=== PATIENT | male | born 1985 | race Caucasian/White ===

== ENCOUNTER 2016-08-22 14:16 | Outpatient (CLI) | payer MEDICAID | END 2016-08-22 14:17 | disposition home or self-care (01) | DX: I26.99 Other pulmonary embolism without acute cor pulmonale (principal) ==

== ENCOUNTER 2017-09-26 11:59 | Outpatient (CLI) | payer MEDICAID ==
--- NOTE | 2017-09-26 14:29 | XRAY Report ---
THREE VIEW RIGHT FIFTH FINGER: 09/26/2017 CLINICAL INDICATION: Laceration. FINDINGS: AP, lateral, oblique views of the right fifth finger demonstrate no evidence of fracture or dislocation. Soft tissue swelling is present. No radiopaque foreign body is appreciated in the soft tissues. IMPRESSION: SOFT TISSUE SWELLING, BUT NO EVIDENCE OF FRACTURE OR RADIOPAQUE FOREIGN BODY. TD: 09/26/2017 14:27
== END 2017-09-26 12:00 | disposition home or self-care (01) ==
LOC: DI.S 11:59
PROVIDERS: ATTEND Nurse Practitioner Family
DX: S61.226A Laceration with foreign body of right little finger without damage to nail, initial encounter (principal)
CPT/HCPCS: 73140

== ENCOUNTER 2017-10-25 16:00 | Outpatient (CLI) | payer MEDICAID | END 2017-10-25 16:01 | disposition home or self-care (01) | LOC: LAB.R 16:00 | PROVIDERS: ATTEND Nurse Practitioner Family | DX: L03.90 Cellulitis, unspecified (principal) | CPT/HCPCS: 87070; 87205 ==

== ENCOUNTER 2017-12-10 13:36 | Emergency (ER) | payer MEDICAID ==
[2017-12-10 13:46] VITALS: BP 147/97
[2017-12-10 15:53] LABS: BASOPHILS # (AUTO) 0.1 10^3/uL (0.0-0.1); EOSINOPHILS # (AUTO) 0.2 10^3/uL (0.0-0.7); EOSINOPHILS % (AUTO) 3.2 %; HGB - HEMOGLOBIN 16.4 g/dL (14.0-18.0); LYMPHOCYTES # (AUTO) 1.8 10^3/uL (1.5-3.5); LYMPHOCYTES % (AUTO) 29.6 %; MEAN CORPUSCULAR HEMOGLOBIN 33.4 pg (27.0-31.0); MEAN CORPUSCULAR HGB CONC 34.5 g/dL (32.0-36.0); MEAN CORPUSCULAR VOLUME 96.9 fL (80.0-94.0); MEAN PLATELET VOLUME 7.5 fL (7.4-11.4); MONOCYTES # (AUTO) 0.7 10^3/uL (0.0-1.0); MONOCYTES % (AUTO) 10.8 %; NEUTROPHILS # (AUTO) 3.4 10^3/uL (1.5-6.6); NEUTROPHILS % (AUTO) 55.4 %; PLT - PLATELET COUNT 206 10^3/uL (130-450); RED BLOOD COUNT 4.89 10^6/uL (4.70-6.10); RED CELL DISTRIBUTION WIDTH 12.4 % (12.0-15.0); WHITE BLOOD COUNT 6.2 x10^3/uL (4.8-10.8)
[2017-12-10 16:00] LABS: CALCIUM 9.4 mg/dL (8.5-10.3)
--- NOTE | 2017-12-10 16:13 | ED Physician Documentation ---
History of Present Illness - Stated complaint Stated Complaint: RT LEG PX - Chief complaint Chief Complaint: General - Additonal information Additional information: hx from pt 32 male hx DVT from prolonged sitting no longer on anticoag now with increasing pain RLE from medial groin to calf for several weeks no CP or SOA no recent travel, injury, this time he slept prolonged period in awkward position Review of Systems Constitutional: denies: Fever Cardiac: denies: Chest pain / pressure Respiratory: denies: Dyspnea Musculoskeletal: reports: Extremity pain PD PAST MEDICAL HISTORY - Past Medical History Past Medical History: Yes Cardiovascular: None, Pulmonary embolism Respiratory: Asthma Endocrine/Autoimmune: None GI: None : None HEENT: None Psych: None Musculoskeletal: None Derm: None - Past Surgical History Past Surgical History: Yes - Present Medications Home Medications: Ambulatory Orders Medication Instructions Recorded Confirmed Rivaroxaban [Xarelto] 15 mg PO BID #41 tablet 12/10/17 - Allergies Allergies/Adverse Reactions: Allergies Allergy/AdvReac Type Severity Reaction Status Date / Time bee venom protein (honey bee) Allergy Edema Verified 12/10/17 13:46 - Social History Does the pt smoke?: Yes Smoking Status: Current every day smoker Does the pt drink ETOH?: Yes Does the pt have substance abuse?: No - Immunizations Immunizations are current?: Yes - POLST Patient has POLST: No PD ED PE NORMAL - Vitals Vital signs reviewed: Yes - Neck Neck: Supple, no meningeal sign - Cardiac Cardiac: RRR - Respiratory Respiratory: No respiratory distress, Clear bilaterally - Extremities Extremities: Other (slight swelling, sig TTP to R calf and popliteal region, MSV intact, no infection) Results - Vitals Vitals: Vital Signs - 24 hr 12/10/17 13:43 Temperature 36.4 C L Heart Rate 92 Respiratory 16 Rate Blood Pressure 147/97 H O2 Saturation 97 Oxygen O2 Source Room air - Labs Labs: Laboratory Tests 12/10/17 12/10/17 12/10/17 15:46 15:46 15:46 WBC 6.2 RBC 4.89 Hgb 16.4 Hct 47.4 MCV 96.9 H MCH 33.4 H MCHC 34.5 RDW 12.4 Plt Count 206 MPV 7.5 Neut # (Auto) 3.4 Lymph # (Auto) 1.8 [place] # (Auto) 0.7 Eos # (Auto) 0.2 Baso # (Auto) 0.1 Absolute Nucleated RBC 0.00 Nucleated RBC % 0.0 PT 12.5 INR 1.1 Sodium 139 Potassium 4.2 Chloride 104 Carbon Dioxide 28 Anion Gap 7.0 BUN 10 Creatinine 1.0 Estimated GFR (MDRD) 86 L Glucose 83 Calcium 9.4 - Rads (name of study) RLE duplex Radiology: See rad report (DVT from prox fem through popliteal as well as sup greater saphenous to knee) PD MEDICAL DECISION MAKING - Sepsis Event Vital Signs: Vital Signs - 24 hr 12/10/17 13:43 Temperature 36.4 C L Heart Rate 92 Respiratory 16 Rate Blood Pressure 147/97 H O2 Saturation 97 Oxygen O2 Source Room air Departure - Departure Disposition: Home, Self Care Clinical Impression: Right leg DVT Qualifiers: Affected thrombotic vein of extremity: other lower extremity vein Chronicity: acute Qualified Code(s): I82.491 - Acute embolism and thrombosis of other specified deep vein of right lower extremity Condition: Good Instructions: ED DVT, Rivaroxaban oral tablets Prescriptions: Rivaroxaban [Xarelto] 15 mg PO BID #41 tablet Comments: This is your second serious episode of blood clots You need to have further work up to see if you have a clotting disorder Your PMD may want to refer you to insulation engineman for this evaluation Take the xarelto as prescribed : 15 mg twice a day for 3 week, then 20 mg once a day for at least 3 months and probably longer. I prescribed the first phase of treatment, twice daily dosing - but then you need to see your PMD for the rest of the course of medication - the three week prescription I gave you is not the complete treatment If at any point you develop chest pain or shortness breath or feel faint like with your prior PE, come straight back to the ER You need to be very careful not to bump hour head or get hurt on blood thinners - no football or other contact sports etc. If you do hit your head you need to come straight to the ER to get checked
[2017-12-10 16:18] LABS: INR 1.1 (0.8-1.2); PT - PROTHROMBIN TIME 12.5 secs (9.9-12.6)
--- NOTE | 2017-12-10 16:50 | Ultrasound Report ---
Procedure Date: 12/10/2017 Accession Number: [id number] / [id number] Procedure: US - Duplex Ext Veins Right CPT Code: FULL RESULT: EXAM: RIGHT LOWER EXTREMITY VENOUS ULTRASOUND EXAM DATE: 12/10/2017 03:49 PM. CLINICAL HISTORY: Right leg pain. History of DVT. COMPARISON: None. TECHNIQUE: Real-time sonographic vascular imaging was performed by the traffic clerk through the lower extremity utilizing both color-flow and Doppler spectral analysis. Multiple direct customer service representative static images were saved for review. FINDINGS: Common Femoral Vein (CFV): Normal. CFV-GSV Junction: Occlusive thrombus in the greater saphenous vein, extending from the CFV-GSV junction to the knee. Profunda Femoral Vein (PFV): Normal. Femoral Vein (FV) Prox: Nonocclusive thrombus. Femoral Vein (FV) Mid: Nonocclusive thymus. Femoral Vein (FV) Dist: Occlusive thrombus. Popliteal Vein: Nonocclusive thrombus. Posterior Tibial Veins: Not well seen. Peroneal Veins: Not well seen. IMPRESSION: 1. Partially occlusive deep venous thrombus from the proximal femoral vein through the popliteal vein. 2. Occlusive superficial venous thrombus in the greater saphenous vein, extending from the CFV-GSV junction to the knee. RADIA The above findings were discussed with Mana Solis by Dr. Reina Koo at 16:48 hrs on 12/10/17.
== END 2017-12-10 17:47 | disposition home or self-care (01) ==
LOC: ED 13:36
DX: I82.491 Acute embolism and thrombosis of other specified deep vein of right lower extremity (principal); Z86.711 Personal history of pulmonary embolism; Z79.01 Long term (current) use of anticoagulants; F17.200 Nicotine dependence, unspecified, uncomplicated
CPT/HCPCS: 36415; 80048; 85025; 85610; 99283

== ENCOUNTER 2022-07-03 09:46 | Outpatient (CLI) | payer MEDICAID | END 2022-07-03 09:47 | disposition EMS.NT | LOC: EMS 09:46 | DX: M54.50 Low back pain, unspecified (principal) ==

== ENCOUNTER 2022-09-26 08:00 | Outpatient (CLI) | payer MEDICAID | END 2022-09-26 23:59 | disposition home or self-care (01) | LOC: LAB.S 08:00 | PROVIDERS: ATTEND Registered Nurse | DX: R82.79 Other abnormal findings on microbiological examination of urine (principal); R31.9 Hematuria, unspecified; F19.10 Other psychoactive substance abuse, uncomplicated | CPT/HCPCS: 36415; 80050; 83036; 87086 ==

== ENCOUNTER 2022-09-26 13:47 | Outpatient (CLI) | payer MEDICAID ==
[2022-09-26 19:40] LABS: BASOPHILS # (AUTO) 0.1 10^3/uL (0.0-0.1); BASOPHILS % (AUTO) 0.7 %; EOSINOPHILS # (AUTO) 0.4 10^3/uL (0.0-0.7); EOSINOPHILS % (AUTO) 4.8 %; HCT - HEMATOCRIT 49.6 % (42.0-52.0); HGB - HEMOGLOBIN 16.7 g/dL (14.0-18.0); LYMPHOCYTES # (AUTO) 2.6 10^3/uL (1.5-3.5); LYMPHOCYTES % (AUTO) 34.4 %; MEAN CORPUSCULAR HEMOGLOBIN 33.3 pg (27.0-31.0); MEAN CORPUSCULAR HGB CONC 33.7 g/dL (32.0-36.0); MEAN CORPUSCULAR VOLUME 98.8 fL (80.0-94.0); MEAN PLATELET VOLUME 9.9 fL (7.4-11.4); MONOCYTES # (AUTO) 0.6 10^3/uL (0.0-1.0); MONOCYTES % (AUTO) 7.4 %; NEUTROPHILS # (AUTO) 3.9 10^3/uL (1.5-6.6); NEUTROPHILS % (AUTO) 52.3 %; PLT - PLATELET COUNT 237 10^3/uL (130-450); RED BLOOD COUNT 5.02 10^6/uL (4.70-6.10); RED CELL DISTRIBUTION WIDTH 12.4 % (12.0-15.0); WHITE BLOOD COUNT 7.5 x10^3/uL (4.8-10.8)
[2022-09-26 19:50] LABS: ALBUMIN 4.4 g/dL (3.2-5.5); ALBUMIN/GLOBULIN RATIO 1.5 (1.0-2.2); BILIRUBIN,TOTAL 0.4 mg/dL (0.2-1.0); CREATININE 0.9 mg/dL (0.6-1.2); POTASSIUM 3.7 mmol/L (3.5-5.0); TOTAL PROTEIN 7.4 g/dL (6.7-8.2)
[2022-09-26 20:07] LABS: THYROID STIMULATING HORMONE 2.69 uIU/mL (0.34-5.60)
[2022-09-26 22:02] LABS: ESTIMATED AVERAGE GLUCOSE 103 mg/dL (70-100); HEMOGLOBIN A1c% 5.2 % (4.27-6.07)
== END 2022-09-26 13:48 | disposition home or self-care (01) ==
LOC: LAB.S 13:47
PROVIDERS: ATTEND Registered Nurse
DX: R31.9 Hematuria, unspecified (principal); F19.10 Other psychoactive substance abuse, uncomplicated
CPT/HCPCS: 36415; 80050; 83036

== ENCOUNTER 2022-10-03 07:00 | Outpatient (CLI) | payer MEDICAID | END 2022-10-03 23:59 | disposition home or self-care (01) | LOC: LAB.S 07:00 | PROVIDERS: ATTEND Registered Nurse | DX: R82.79 Other abnormal findings on microbiological examination of urine (principal) | CPT/HCPCS: 87086 ==

== ENCOUNTER 2022-10-07 13:08 | Outpatient (CLI) | payer MEDICAID ==
[2022-10-07] MEDS ORDERED: iohexoL-300 100 ML VIAL ONE (13:23)
[2022-10-07] MEDS ORDERED: iohexoL-300 100 ML VIAL IVP ONE (14:11)
--- NOTE | 2022-10-07 17:03 | CT Report ---
PROCEDURE: IVP INDICATIONS: HEMATURIA, SUBSTANCE ABSUE CONTRAST: 140ml omni 300 TECHNIQUE: After the administration of intravenous contrast, 5 mm thick sections acquired from the diaphragms to the symphysis. 5 mm thick coronal and sagittal reformats were acquired. For radiation dose reducti on, the following was used: automated exposure control, adjustment of mA and/or kV according to farnaz ent size. COMPARISON: None. FINDINGS: Image quality: Excellent. Urinary system: Both kidneys are normal in size. 9 mm stone in the extrarenal pelvis of the left kid alcon (921 HU), with mild upstream hydronephrosis.. Nonobstructing stone in the inferior calyx of the l eft kidney measuring 1.1 cm (850 HU). Additional punctate nonobstructing stones. There is fat strandi ng adjacent to the renal pelvis. No solid masses or complex cysts which require follow up. The opacif ied renal calyces and ureters appear normal, without filling defect. Bladder wall thickness is christal l, accounting for underdistention. No calcified bladder stones. No filling defect within the opacifie d bladder. OTHER Lung bases and heart: Unremarkable. Liver: Hepatic steatosis. Gallbladder and biliary tree: Unremarkable. No biliary dilation. Spleen: Unremarkable. Pancreas: Unremarkable. Adrenals: Unremarkable. Bowel and peritoneum: No bowel distension. No pathologic free fluid. Fecal debris within the small justus wel, which may indicate small intestinal bacterial overgrowth. Abdominal Lymph nodes: No central or retroperitoneal adenopathy. Vessels: IVC filter in place. Reproductive organs: Unremarkable. Pelvic Lymph nodes: Unremarkable. Bones: No aggressive osseous abnormality. Prior pelvic reconstruction. Other: None. IMPRESSION: Partially obstructing stone in the extrarenal pelvis of the left kidney measuring 9 mm. This results in mild hydronephrosis. Additional nonobstructing left-sided stones. No filling defects within the opacified renal collecting systems. Reviewed by: Slade Rodriguez on 10/07/2022 5:02 PM PDT Approved by: Slade Rodriguez on 10/07/2022 5:02 PM PDT Station ID: [id number]
== END 2022-10-07 13:09 | disposition home or self-care (01) ==
LOC: DI 13:08
PROVIDERS: ATTEND Registered Nurse
DX: N13.2 Hydronephrosis with renal and ureteral calculous obstruction (principal); F19.10 Other psychoactive substance abuse, uncomplicated
CPT/HCPCS: 74178; Q9967

== ENCOUNTER 2022-11-17 11:41 | Outpatient (CLI) | payer MEDICAID | END 2022-11-17 11:42 | disposition home or self-care (01) | LOC: LAB.S 11:41 | PROVIDERS: ATTEND Urology | DX: N20.0 Calculus of kidney (principal) | CPT/HCPCS: 87086 ==

== ENCOUNTER 2022-12-10 02:04 | Outpatient (CLI) | payer MEDICAID | END 2022-12-10 23:59 | disposition critical access hospital (66) | LOC: EMS 02:04 | DX: M54.50 Low back pain, unspecified (principal); R10.30 Lower abdominal pain, unspecified | CPT/HCPCS: A0425; A0429 ==

== ENCOUNTER 2022-12-10 02:46 | Emergency (ER) | payer MEDICAID ==
--- NOTE | 2022-12-10 02:46 | ED Physician Documentation ---
History of Present Illness - Stated complaint Stated Complaint: HIP PAIN - History obtained from History obtained from: Patient, EMS - Additonal information Additional information: Brought in by ambulance. HPI is from patient. Patient says he woke from sleep approximately 1 hour ago due to severe left flank pain. Pain waxes and wanes, no ameliorating or exacerbating factors. Denies nausea/vomiting. Patient says he had a ureteral stent removed (left side) yesterday at [facility]. The stent was placed 1 week ago when he had a kidney stone removed. Review of Systems Constitutional: denies: Fever Cardiac: reports: Reviewed and negative Respiratory: reports: Reviewed and negative GI: reports: Abdominal Pain. denies: Nausea, Vomiting, Constipation, Diarrhea : denies: Dysuria, Frequency PD PAST MEDICAL HISTORY - Past Medical History Past Medical History: Yes Cardiovascular: Deep vein thrombosis, Pulmonary embolism : Kidney stones - Present Medications Home Medications: Ambulatory Orders Medication Instructions Recorded Confirmed Rivaroxaban [Xarelto] 15 mg PO BID #41 tablet 12/10/17 11/02/22 Albuterol Sulfate [Proair 108 mcg IH DAILY 11/02/22 11/02/22 Respiclick] Apixaban [Eliquis] 5 mg PO BID 11/02/22 11/02/22 Fluticasone Propionate [Flovent 44 mcg IH BID 11/02/22 11/02/22 Diskus] Ondansetron Odt [Zofran Odt] 4 mg TL Q6H PRN #20 tablet 12/10/22 Oxycodone HCl/Acetaminophen 1 - 2 each PO Q6H PRN #14 tablet 12/10/22 [Percocet 5-325 mg Tablet] Tamsulosin [Flomax] 0.4 mg PO DAILY #20 cap 12/10/22 - Allergies Allergies/Adverse Reactions: Allergies Allergy/AdvReac Type Severity Reaction Status Date / Time bee venom protein (honey bee) Allergy Edema Verified 12/10/17 13:46 PD ED PE NORMAL - Vitals Vital signs reviewed: Yes - General General: Alert and oriented X 3, Well developed/nourished, Other (appears to be in moderate painful distress, restless as if trying to find a comfortable position) - HEENT HEENT: Moist mucous membranes - Cardiac Cardiac: RRR, No murmur - Respiratory Respiratory: No respiratory distress, Clear bilaterally - Abdomen Abdomen: Soft, Non tender, Non distended - Back Back: No CVA TTP Results - Vitals Vitals: Vital Signs - 24 hr 12/10/22 12/10/22 02:54 07:03 Temperature 36.7 C Heart Rate 84 80 Respiratory 18 19 Rate Blood Pressure 119/64 154/106 H O2 Saturation 97 95 Oxygen O2 Source Room air - Labs Labs: Laboratory Tests 12/10/22 12/10/22 12/10/22 03:12 03:12 06:39 WBC 11.1 H RBC 4.66 L Hgb 15.9 Hct 43.7 MCV 93.8 MCH 34.1 H MCHC 36.4 H RDW 12.1 Plt Count 208 MPV 9.3 Neut # (Auto) 8.3 H Lymph # (Auto) 1.4 L [place] # (Auto) 0.8 Eos # (Auto) 0.4 Baso # (Auto) 0.1 Absolute Nucleated RBC 0.00 Nucleated RBC % 0.0 Sodium 140 Potassium 3.6 Chloride 111 Carbon Dioxide 22 Anion Gap 7.0 BUN 13 Creatinine 1.6 H Estimated GFR (MDRD) 48 L Glucose 130 H Calcium 9.2 Total Bilirubin 0.8 AST 28 ALT 38 Alkaline Phosphatase 63 Total Protein 7.3 Albumin 4.2 Globulin 3.1 Albumin/Globulin Ratio 1.4 Lipase 39 Urine Color BROWN Urine Clarity BLOODY Urine pH 6.5 Ur Specific [place] 1.025 Urine Protein Urine Glucose (UA) NEGATIVE Urine Ketones NEGATIVE Urine Occult Blood LARGE H Urine Nitrite Urine Bilirubin NEGATIVE Urine Urobilinogen 0.2 (NORMAL) Ur Leukocyte Esterase NEGATIVE Urine RBC TNTC H Urine WBC 0-3 Ur Squamous Epith Cells RARE Squamous Urine Bacteria Rare Ur Microscopic Review INDICATED Urine Culture Comments NOT INDICATED - Rads (name of study) CT A/P with IV contrast Relevant Findings:: Prelim report reviewed, See rad report PD Medical Decision Making - ED course Complexity details: reviewed results, re-evaluated patient, considered differential, d/w patient ED course: CT A/P demonstrates left distal ureteral obstruction with left hydroureteronephrosis. The obstruction appears to be due to a string of calculi ranging in size with some small particulate distal-most calculi already appearing to have moved into the bladder. A likely scenario would be that renal calculi and fragments remained within left renal collecting system after the lithotripsy , staying in place due to presence of ureteral stent, then migrating down ureter when the stent was removed yesterday only to become lodged in distal ureter, causing recurrence of renal colic. Pain was well controlled with a single dose of toradol and morphine (6mg) IV. He is given IV zofran, as well. Results d/w patient, advised of results and instructed to contact his urologist's office when they are next open to arrange for immediate follow-up ap pointment. He is given 0.4mg tamsulosin prior to d/c as well as take-home pack of percocet and zofran, rx for percocet, zofran , and tamsulosin electronically submitted to patient's pharmacy of choice. I am prescribing a short course of short-acting opioid pain medication for this patient. I have reviewed the patients [employer] and no concerning findings were noted. I have discussed that the opioids are for short term therapy only, and will not be refilled from the ED. Departure - Departure Disposition: 01 Home, Self Care Clinical Impression: Renal colic Condition: Good Instructions: ED Stone Renal W Colic Prescriptions: Tamsulosin [Flomax] 0.4 mg PO DAILY #20 cap Oxycodone HCl/Acetaminophen [Percocet 5-325 mg Tablet] 1 - 2 each PO Q6H PRN #14 tablet PRN Reason: pain Ondansetron Odt [Zofran Odt] 4 mg TL Q6H PRN #20 tablet PRN Reason: Nausea / Vomiting Comments: The CT scan shows that you still have a kidney stone that is lodged in the left ureter; the ureter is the tube that connects the kidney to the bladder. The pain that is caused by kidney stones occurs when the stone gets stuck in the ureter. I suspect that this kidney stone was in your left kidney while the stent was in place, and that it then worked its way down towards the bottom of the ureter when the stent was removed yesterday only to become stuck in the bottom part of the ureter (and causing the pain you are having this morning). I have electronically submitted prescriptions for tamsulosin (medication that can help speed up the passage of the kidney stone and make it more likely that you will pass the stone and not need another procedure), Percocet (narcotic/opiate pain medication), and ondansetron (antinausea medication) to [facility] in [place]. I recommend that you contact your urologist when the office next opens to arrange for next available appointment. I am prescribing a short course of narcotic pain medication for you. These are potentially dangerous and addictive medications that should be used carefully. These medications may constipate you. Take an iaet-bfo-[id number] stool softener (docusate) twice daily with plenty of water while taking these medications. If you go 24 hours without a bowel movement, take nzde-[id number] miralax, per package instructions. Do not drink or drive while taking these medications. If you received narcotic or sedating medications while in the emergency department, do not drive for 24 hours. Store this medication in a safe, secure place and out of reach of children. It is a violation of federal law to give or sell this medication to another person or to use in a manner other than prescribed. The ED will not refill narcotic prescriptions, including prescriptions lost or stolen. To dispose of unwanted medications: 1. [facility] at [address] in [place] has a medication drop box. They accept prescription medications (in pill form) Monday through Monday 9:00 a.m. to 5:00 p.m. 2. [facility] accepts prescription medications (in pill form only) for disposal year round. Call for more information. 3. Contact the [facility] for the next [facility] sponsored prescription drug collection event. , [phone], or [phone]; Discharge Date/Time: 12/10/22 07:04
[2022-12-10] MEDS ORDERED: ONDANSETRON 4 MG/2 ML VIAL IVP STA (03:02)
[2022-12-10] MEDS ORDERED: KETOROLAC 30 MG/ML VIAL IVP STA (03:02)
[2022-12-10] MEDS ORDERED: SODIUM CHLORIDE 0.9% 1,000 ML IV STA (03:02)
[2022-12-10] MEDS ORDERED: MORPHINE 2 MG/ML CARPUJECT IVP STA (03:02)
[2022-12-10 03:17] LABS: BASOPHILS # (AUTO) 0.1 10^3/uL (0.0-0.1); BASOPHILS % (AUTO) 0.5 %; EOSINOPHILS # (AUTO) 0.4 10^3/uL (0.0-0.7); HCT - HEMATOCRIT 43.7 % (42.0-52.0); HGB - HEMOGLOBIN 15.9 g/dL (14.0-18.0); LYMPHOCYTES # (AUTO) 1.4 10^3/uL (1.5-3.5); LYMPHOCYTES % (AUTO) 12.4 %; MEAN CORPUSCULAR HEMOGLOBIN 34.1 pg (27.0-31.0); MEAN CORPUSCULAR HGB CONC 36.4 g/dL (32.0-36.0); MEAN CORPUSCULAR VOLUME 93.8 fL (80.0-94.0); MEAN PLATELET VOLUME 9.3 fL (7.4-11.4); MONOCYTES # (AUTO) 0.8 10^3/uL (0.0-1.0); MONOCYTES % (AUTO) 7.3 %; NEUTROPHILS # (AUTO) 8.3 10^3/uL (1.5-6.6); NEUTROPHILS % (AUTO) 75.4 %; PLT - PLATELET COUNT 208 10^3/uL (130-450); RED BLOOD COUNT 4.66 10^6/uL (4.70-6.10); RED CELL DISTRIBUTION WIDTH 12.1 % (12.0-15.0); WHITE BLOOD COUNT 11.1 x10^3/uL (4.8-10.8)
[2022-12-10 03:32] LABS: ALBUMIN 4.2 g/dL (3.2-5.5); ALBUMIN/GLOBULIN RATIO 1.4 (1.0-2.2); BILIRUBIN,TOTAL 0.8 mg/dL (0.2-1.0); CALCIUM 9.2 mg/dL (8.5-10.3); CREATININE 1.6 mg/dL (0.6-1.2); POTASSIUM 3.6 mmol/L (3.5-5.0); TOTAL PROTEIN 7.3 g/dL (6.7-8.2)
[2022-12-10] MEDS ORDERED: iohexoL-300 100 ML VIAL ONE (03:59)
[2022-12-10] MEDS ORDERED: iohexoL-300 100 ML VIAL IVP ONE (05:14)
[2022-12-10] MEDS ORDERED: oxyCODONE/ACET 5/325 Prepack 4 PO STA (06:21)
[2022-12-10] MEDS ORDERED: TAMSULOSIN 0.4 MG CAPSULE PO STA (06:21)
[2022-12-10] MEDS ORDERED: ONDANSETRON ODT 4 MG Prepack 2 TL PRN (06:21)
[2022-12-10 06:53] LABS: GLUCOSE, URINE (UA) NEGATIVE (NEGATIVE); KETONES,URINE (UA) NEGATIVE (NEGATIVE); LEUKOCYTE ESTERASE, URINE NEGATIVE (NEGATIVE); OCCULT BLOOD,URINE LARGE (NEGATIVE); PH,URINE 6.5 PH (5.0-7.5); UROBILINOGEN,URINE 0.2 (NORMAL) E.U./dL (NORMAL)
[2022-12-10 06:58] LABS: BILIRUBIN,URINE NEGATIVE (NEGATIVE); CLARITY,URINE BLOODY (CLEAR); ICTOTEST,URINE NEGATIVE
[2022-12-10 06:59] LABS: BACTERIA,URINE Rare /HPF (None Seen); RBC,URINE TNTC /HPF (0-5); SQUAMOUS EPITHELIAL CELL,UR RARE Squamous (<= Few); WBC,URINE 0-3 /HPF (0-3)
[2022-12-10 07:06] VITALS: BP 154/106
--- NOTE | 2022-12-10 10:05 | CT Report ---
PROCEDURE: ABDOMEN/PELVIS W INDICATIONS: left flank pain, ureteral stent removed yesterday CONTRAST: 100 ML OMNI 300 TECHNIQUE: After the administration of contrast, 5 mm thick sections acquired from the diaphragms to the symphys is. 5 mm thick coronal and sagittal reformats were acquired. For radiation dose reduction, the foll owing was used: automated exposure control, adjustment of mA and/or kV according to patient size. COMPARISON: CT IVP dated 10/07/2022 FINDINGS: Image quality: Excellent. Lung bases and heart: Unremarkable. Liver: No solid mass. The liver demonstrates low density consistent with hepatic steatosis. Gallbladder and biliary tree: Normal. No wall thickening or pericholecystic fluid. No stones. Spleen: No splenomegaly. Pancreas: No pancreatic ductal dilation. Adrenals: No adrenal nodule. Kidneys and ureters: The right kidney has no stones, hydronephrosis, or solid or cystic masses. The l eft kidney demonstrates decreased enhancement with moderate hydronephrosis and a distal left ureteral stone or multiple stacked stones measuring 3.5 cm in length and 6 mm transverse. Bowel and peritoneum: No bowel distension. No pathologic free fluid. Lymph nodes: No central or retroperitoneal adenopathy. Vessels: No infrarenal aortic aneurysm. PELVIS Reproductive organs: Unremarkable. Bladder: No abnormal wall thickening, accounting for underdistension. Pelvic lymph nodes: No pelvic adenopathy by size criteria. Bones: No aggressive osseous abnormality. Other: No significant ventral or inguinal hernia. IMPRESSION: 1. Left distal ureteral stone measuring 6 mm transverse and 3.5 cm in length. 2. Moderate hydronephrosis and perinephric edema with decreased enhancement of the left kidney. Findings above correspond with preliminary findings by [facility]. Reviewed by: Kvng Zuluaga on 12/10/2022 9:03 AM BONY Approved by: Kvng Zuluaga on 12/10/2022 9:03 AM BONY Station ID: [id number]
== END 2022-12-10 07:04 | disposition home or self-care (01) ==
LOC: EDUNIT# → ED 02:46
DX: N13.2 Hydronephrosis with renal and ureteral calculous obstruction (principal)
CPT/HCPCS: 36415; 74177; 80053; 81001; 83690; 85025; 96374; 99284; A9270; Q9967; 81003; 87086

== ENCOUNTER 2022-12-15 09:41 | Outpatient (CLI) | payer MEDICAID ==
[2022-12-15 09:51] LABS: BILIRUBIN,URINE NEGATIVE (NEGATIVE); GLUCOSE, URINE (UA) NEGATIVE (NEGATIVE); KETONES,URINE (UA) NEGATIVE (NEGATIVE); LEUKOCYTE ESTERASE, URINE TRACE (NEGATIVE); NITRITE,URINE POSITIVE (NEGATIVE); OCCULT BLOOD,URINE TRACE-INTA (NEGATIVE); PH,URINE 7.5 PH (5.0-7.5); PROTEIN,URINE 30 mg/dL (NEGATIVE); UROBILINOGEN,URINE 0.2 (NORMAL) E.U./dL (NORMAL)
[2022-12-15 09:52] LABS: CLARITY,URINE SL. CLOUDY (CLEAR)
[2022-12-15 10:10] LABS: AMORPHOUS SEDIMENT,UR Moderate /LPF; BACTERIA,URINE Few /HPF (None Seen); CASTS, URINE 0-2 Hyaline Casts /LPF; RBC,URINE 0-5 /HPF (0-5); SQUAMOUS EPITHELIAL CELL,UR RARE Squamous (<= Few)
== END 2022-12-15 09:42 | disposition home or self-care (01) ==
LOC: LAB.R 09:41
PROVIDERS: ATTEND Urology
DX: N20.0 Calculus of kidney (principal)
CPT/HCPCS: 81001; 87077; 87086; 87181

== ENCOUNTER 2022-12-22 08:00 | Outpatient (CLI) | payer MEDICAID ==
--- NOTE | 2022-12-22 15:55 | XRAY Report ---
PROCEDURE: Hips 3-4V BILAT INDICATIONS: BILATERAL HIP PAIN TECHNIQUE: 2 views of the right hip and left hip were acquired. COMPARISON: CT abdomen pelvis 12/10/2022. FINDINGS: Bones: Postsurgical changes compatible with bilateral SI joint arthrodesis, right iliac bone ORIF an d pubic symphysis ORIF. No acute fractures or dislocations. No suspicious bony lesions. Mild bilater al hip osseous hypertrophy compatible with mild osteoarthritis. Soft tissues: No suspicious soft tissue calcifications or masses. IMPRESSION: Mild bilateral hip osteoarthritis. Postsurgical changes compatible compared to prior CT scan. Reviewed by: Shantel Dimas MD, PhD on 12/22/2022 3:54 PM PDT Approved by: Shantel Dimas MD, PhD on 12/22/2022 3:54 PM PDT Station ID: [id number]
--- NOTE | 2022-12-22 15:58 | XRAY Report ---
PROCEDURE: Thoracic Spine 3 View INDICATIONS: CHRONIC BACK PAIN TECHNIQUE: 3 views of the thoracic spine were acquired. COMPARISON: None. FINDINGS: Bones: No fractures or dislocations. No suspicious bony lesions. 12 pairs of ribs are noted, and a ppear intact where visualized. Mild degenerative disc changes throughout the thoracic spine. Soft tissues: No paravertebral stripe thickening. IMPRESSION: Multilevel degenerative disease. No fracture. No acute osseous lesion. If there is continued clinical concern for pathology, then MRI should be considered for further evaluation. Reviewed by: Shantel Dimas MD, PhD on 12/22/2022 3:57 PM PDT Approved by: Shantel Dimas MD, PhD on 12/22/2022 3:57 PM PDT Station ID: [id number]
--- NOTE | 2022-12-22 15:58 | XRAY Report ---
PROCEDURE: Lumbar Spine 2 View Bending INDICATIONS: CHRONIC BACK PAIN TECHNIQUE: AP & Lateral views of the lumbar spine were acquired, followed by flexion & extension johny ding views of the lumbar spine. COMPARISON: None. FINDINGS: Bones: 5 [id number] vertebrae are present. There is normal bony alignment. No vertebral body compression fractures. Pelvic fixation hardware. No suspicious bony lesions. Mild L5-S1 degenerative disc disease. Mild L5-S1 facet arthropathy. Soft tissues: Overlying bowel gas pattern is normal. No suspicious soft tissue calcifications. IVC filter noted. Flexion/extension: There is limited range of motion, with preserved normal alignment. IMPRESSION: Mild L5-S1 degenerative disc disease and facet arthropathy. No fracture. No acute osseous lesion. If there is continued clinical concern for pathology, then MRI should be considered for further evaluation. Limited range of motion about the flexed and extended positions with no abnormal vertebral body motio n. Reviewed by: Shantel Dimas MD, PhD on 12/22/2022 3:56 PM PDT Approved by: Shantel Dimas MD, PhD on 12/22/2022 3:56 PM PDT Station ID: [id number]
== END 2022-12-22 23:59 | disposition home or self-care (01) ==
LOC: DI.S 08:00
PROVIDERS: ATTEND Nurse Practitioner Acute Care
DX: M51.34 Other intervertebral disc degeneration, thoracic region (principal); M47.816 Spondylosis without myelopathy or radiculopathy, lumbar region; M51.36 Other intervertebral disc degeneration, lumbar region; M16.0 Bilateral primary osteoarthritis of hip

== ENCOUNTER 2023-01-18 14:14 | Outpatient (CLI) | payer MEDICAID ==
--- NOTE | 2023-01-18 19:58 | Ultrasound Report ---
PROCEDURE: Retroperitoneal INDICATIONS: URETERAL STONE TECHNIQUE: Real-time scanning was performed of the retroperitoneal organs, with image documentation. COMPARISON: CT abdomen/pelvis 12/10/2022 FINDINGS: Kidneys: Kidneys are normal in size. Right kidney measures 10.5 cm long; left kidney measures 13.0 cm long. Right renal cortical thickness is 0.9 cm; left renal cortical thickness is 0.9 cm. No ilda d masses, hydronephrosis, or nephrolithiasis. Bladder: Pre-void bladder volume is 569 mL. Post-void residual is 70 mL. Pre-void images demonstra te no intraluminal masses or stones. On pre-void images, bilateral ureteral jets are noted with colo r Doppler interrogation. (Of note, ureteral jets may not be detectable in up to 25% of cases due to insufficient differences in specific gravity between ureteral and bladder urine). Miscellaneous: No free abdominal fluid. Prostate measures 2.9 x 4.2 x 3.1 cm (20 cc). IMPRESSION: No hydronephrosis. No renal calculi are seen sonographically.. Reviewed by: Mitch Thomas MD on 01/18/2023 7:57 PM PDT Approved by: Mitch Thomas MD on 01/18/2023 7:57 PM PDT Station ID: [id number]
== END 2023-01-18 14:15 | disposition home or self-care (01) ==
LOC: DI 14:14
PROVIDERS: ATTEND Urology
DX: N13.2 Hydronephrosis with renal and ureteral calculous obstruction (principal)

== ENCOUNTER 2023-01-24 10:12 | Outpatient (CLI) | payer MEDICAID | END 2023-01-24 10:13 | disposition home or self-care (01) | LOC: DI 10:12 | PROVIDERS: ATTEND Nurse Practitioner Acute Care | DX: I51.7 Cardiomegaly (principal); R94.31 Abnormal electrocardiogram [ECG] [EKG] | CPT/HCPCS: 93306 ==

== ENCOUNTER 2023-01-24 13:22 | Outpatient (CLI) | payer MEDICAID ==
[2023-01-24] MEDS ORDERED: ALBUTEROL 1 PUFF INH STA (18:04)
== END 2023-01-24 13:23 | disposition home or self-care (01) ==
LOC: RT 13:22
PROVIDERS: ATTEND Internal Medicine
DX: J45.30 Mild persistent asthma, uncomplicated (principal)
CPT/HCPCS: 94060; 94727; 94729

== ENCOUNTER 2023-01-25 08:00 | Outpatient (CLI) | payer MEDICAID ==
[2023-01-25 16:10] LABS: BILIRUBIN,URINE NEGATIVE (NEGATIVE); GLUCOSE, URINE (UA) NEGATIVE (NEGATIVE); KETONES,URINE (UA) NEGATIVE (NEGATIVE); LEUKOCYTE ESTERASE, URINE NEGATIVE (NEGATIVE); NITRITE,URINE NEGATIVE (NEGATIVE); OCCULT BLOOD,URINE NEGATIVE (NEGATIVE); PROTEIN,URINE NEGATIVE (NEGATIVE); UROBILINOGEN,URINE 0.2 (NORMAL) E.U./dL (NORMAL)
[2023-01-25 16:12] LABS: CLARITY,URINE CLEAR (CLEAR)
[2023-01-25 16:29] LABS: BACTERIA,URINE Rare /HPF (None Seen); RBC,URINE None Seen /HPF (0-5); SQUAMOUS EPITHELIAL CELL,UR FEW Squamous (<= Few); WBC,URINE 0-3 /HPF (0-3)
== END 2023-01-25 23:59 | disposition home or self-care (01) ==
LOC: LAB 08:00
PROVIDERS: ATTEND Urology
DX: R31.9 Hematuria, unspecified (principal)
CPT/HCPCS: 81001; 87086

== ENCOUNTER 2023-09-19 10:46 | Outpatient (CLI) | payer MEDICAID ==
[2023-09-19 14:45] LABS: BASOPHILS # (AUTO) 0.1 10^3/uL (0.0-0.1); BASOPHILS % (AUTO) 0.8 %; EOSINOPHILS # (AUTO) 0.3 10^3/uL (0.0-0.7); HCT - HEMATOCRIT 47.4 % (42.0-52.0); HGB - HEMOGLOBIN 15.9 g/dL (14.0-18.0); LYMPHOCYTES % (AUTO) 23.7 %; MEAN CORPUSCULAR HEMOGLOBIN 31.4 pg (27.0-31.0); MEAN CORPUSCULAR HGB CONC 33.5 g/dL (32.0-36.0); MEAN CORPUSCULAR VOLUME 93.5 fL (80.0-94.0); MONOCYTES # (AUTO) 0.6 10^3/uL (0.0-1.0); MONOCYTES % (AUTO) 7.5 %; NEUTROPHILS # (AUTO) 5.3 10^3/uL (1.5-6.6); NEUTROPHILS % (AUTO) 63.8 %; PLT - PLATELET COUNT 236 10^3/uL (130-450); RED BLOOD COUNT 5.07 10^6/uL (4.70-6.10); RED CELL DISTRIBUTION WIDTH 12.7 % (12.0-15.0); WHITE BLOOD COUNT 8.3 x10^3/uL (4.8-10.8)
[2023-09-19 15:12] LABS: THYROID STIMULATING HORMONE 1.54 uIU/mL (0.34-5.60)
[2023-09-19 15:18] LABS: ALBUMIN 4.6 g/dL (3.2-5.5); ALKALINE PHOSPHATASE 76 IU/L (42-121); ALT ALANINE AMINOTRANSFERASE 43 IU/L (10-60); AST ASPARTATE AMINOTRANSFERASE 31 IU/L (10-42); BILIRUBIN,TOTAL 0.5 mg/dL (0.2-1.0); BUN - BLOOD UREA NITROGEN 11 mg/dL (6-20); CALCIUM 10.1 mg/dL (8.5-10.3); CARBON DIOXIDE - CO2 27 mmol/L (21-32); CHLORIDE 108 mmol/L (101-111); CHOL/HDL RATIO 5.2 (<5.0); CHOLESTEROL 214 mg/dL; CREATININE 1.1 mg/dL (0.6-1.3); GFR - MDRD 74 (>89); GLUCOSE 63 mg/dL (74-104); HDL CHOLESTEROL 41 mg/dL; LDL CHOLESTEROL,CALCULATED 119 mg/dL; LDL/HDL RATIO 2.9 (<3.6); POTASSIUM 3.7 mmol/L (3.5-4.5); SODIUM 142 mmol/L (135-145); TOTAL PROTEIN 6.9 g/dL (6.4-8.9); TRIGLYCERIDES 271 mg/dL (48-352); VLDL CHOLESTEROL 54 mg/dL
[2023-09-20 05:12] LABS: HIV SCREEN 4TH GENERATION Non Reactive (Non Reactive)
== END 2023-09-19 10:47 | disposition home or self-care (01) ==
LOC: LAB.S 10:46
PROVIDERS: ATTEND Nurse Practitioner Acute Care
DX: Z13.228 Encounter for screening for other metabolic disorders (principal); Z13.220 Encounter for screening for lipoid disorders; Z13.29 Encounter for screening for other suspected endocrine disorder; Z13.0 Encounter for screening for diseases of the blood and blood-forming organs and certain disorders involving the immune mechanism; Z11.59 Encounter for screening for other viral diseases; Z11.4 Encounter for screening for human immunodeficiency virus [HIV]
CPT/HCPCS: 36415; 80050; 80061; 83721; 86803; 87389

== ENCOUNTER 2023-11-18 15:47 | Emergency (ER) | payer MEDICAID ==
[2023-11-18 16:00] VITALS: O2SAT 98
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
[2023-11-18] MEDS: KETOROLAC 30 MG/ML VIAL IM STA (18:05)
[2023-11-18 18:53] VITALS: BP 149/105
== END 2023-11-18 18:45 | disposition home or self-care (01) ==
LOC: ED 15:47
DX: M25.552 Pain in left hip (principal); M25.551 Pain in right hip; F17.200 Nicotine dependence, unspecified, uncomplicated; Z79.01 Long term (current) use of anticoagulants; Z79.899 Other long term (current) drug therapy
CPT/HCPCS: 96372; 99283